=== PATIENT | female | born 1985 | race Caucasian/White ===

== ENCOUNTER 2017-02-27 12:10 | Emergency (ER) | payer BC, MEDICAID ==
[~2017-02-27] VITALS: Ht 167.6 cm; Wt 57.0 kg
[2017-02-27 12:11] VITALS: BP 120/74; PULSE 88; RESP 20; TEMP 97.8; O2SAT 98
--- NOTE | 2017-02-27 12:38 | PD ---
Physical Exam Date Seen by Provider: Feb 27, 2017 Time Seen by Provider: 12:37 Data Data Last Documented VS Vital Signs Date Time Temp Pulse Resp B/P Pulse Ox O2 Delivery O2 Flow Rate FiO2 02/27/17 12:11 97.8 88 20 120/74 98 Room Air [facility] Supervised Visit with ANGELA: No Narrative Course 31 YO F with complaint of chronic UTIs. ABX 3 weeks ago. Recurrence of symptoms x 2 days. Vitals reviewed. Awaiting bed placement. Scripts No Active Prescriptions or Reported Meds Yelena Plunkett Feb 27, 2017 12:38
--- NOTE | 2017-02-27 12:55 | PD ---
HPI Chief Complaint: Complaint Time Seen by Provider: 12:51 Travel History International Travel<30 days: No Contact w/Intl Traveler<30days: No Traveled to known affect area: No History of Present Illness HPI 31-year-old female who has history of recurrent UTI thinks he is having another one today. Usually her primary care would prescribe antibiotic over the phone but the office is closed today. Also she says that because she's been getting once every month for past 6 months a primary care is planning to get a urologic in [employer] workup for the reason for these recurrent UTIs. However she is here to get some antibiotic prescription today. She says today her pain is in the pelvic area and cramping but no bleeding. She was getting some sweating as well. She feels uncomfortable. She's been taking cranberry juice and AZO pill but not helping. Vital signs were otherwise stable. She does have dysuria and frequency. PFSH Past Medical History Narrative Medical List of her past medical, surgical, social and family history is reviewed from the nursing note. Hx Anticoagulant Therapy: No Cardiovascular Problems: No Chemotherapy: No Cerebrovascular Accident: No Diabetes: No Medical other: Yes (uti) Respiratory: No ?: Not LMP: I have an IUD : 4 Para: 2 Miscarriage: 1 Dilation and Curettage (D&C): Yes (1 STILLBORN AT 6 MONTHS) Past Surgical History Section: Yes Other Surgery: Yes Social History Alcohol Use: No Tobacco Use: No Substance Use: No Allergies-Medications (Allergen,Severity, Reaction): Coded Allergies: No Known Allergies (Verified , 02/27/17) Comments List of her allergies reviewed from the nursing note. Reported Meds & Prescriptions Reported Meds & Active Scripts Active Macrobid (Nitrofurantoin Monoh/Nitrofur Macro) 100 Mg Cap 100 Mg PO BID 7 Days Narrative Medication List of her home medications reviewed from the nursing note. Review of Systems Except as stated in HPI: all other systems reviewed are Neg Physical Exam Narrative GENERAL: Awake, alert, anxious SKIN: Focused skin assessment warm/dry. HEAD: Atraumatic. Normocephalic. EYES: Pupils equal and round. No scleral icterus. No injection or drainage. ENT: No nasal bleeding or discharge. Mucous membranes pink and moist. NECK: Trachea midline. No JVD. CARDIOVASCULAR: Regular rate and rhythm. No murmur appreciated. RESPIRATORY: No accessory muscle use. Clear to auscultation. Breath sounds equal bilaterally. GASTROINTESTINAL: Abdomen soft, tenderness over the pelvic area, nondistended. Hepatic and splenic margins not palpable. MUSCULOSKELETAL: No obvious deformities. No clubbing. No cyanosis. No edema. NEUROLOGICAL: Awake and alert. No obvious cranial nerve deficits. Motor grossly within normal limits. Normal speech. PSYCHIATRIC: Appropriate mood and affect; insight and judgment normal. Data Data Last Documented VS Vital Signs Date Time Temp Pulse Resp B/P Pulse Ox O2 Delivery O2 Flow Rate FiO2 02/27/17 12:11 97.8 88 20 120/74 98 Room Air Orders Urinalysis - C+S If Indicated (02/27/17 13:04) Nitrofurantoin Monohyd Macrocr (Macrobid (02/27/17 13:15) Ibuprofen (Motrin) (02/27/17 13:15) Urine Culture (02/27/17 13:13) Labs Laboratory Tests Test 02/27/17 13:13 Urine Color YELLOW Urine Turbidity HAZY Urine pH 5.5 Urine Specific [place] 1.019 Urine Protein NEG mg/dL Urine Glucose (UA) NEG mg/dL Urine Ketones NEG mg/dL Urine Occult Blood TRACE Urine Nitrite NEG Urine Bilirubin NEG Urine Urobilinogen LESS THAN 2.0 MG/DL Urine Leukocyte Esterase LARGE Urine RBC 8 /hpf Urine WBC 46 /hpf Urine Squamous Epithelial 5 /hpf Cells Urine Bacteria OCC /hpf Urine Mucus FEW /lpf Microscopic Urinalysis Comment CULTURE INDICATED MDM Medical Decision Making Medical Screen Exam Complete: Yes Emergency Medical Condition: Yes Medical Record Reviewed: Yes Differential Diagnosis UTI, cystitis Narrative Course 11:15 PM patient says that she will follow up with her primary care on Wednesday and try to get the ultrasound as an outpatient. I have ordered a dose of Macrobid and Motrin here for her. She'll go home on prescription and she is comfortable with that plan. Procedures EKG Prior to Arrival: No Diagnosis Primary Impression: Cystitis Referrals: Primary Care Physician Additional Instructions: Please follow-up with your primary care on Wednesday. Return to the ER if the condition worsens or any other new concerns. Otherwise take the medication as per the prescription direction. Can take [id number] Motrin/Advil/ ibuprofen for pain. Med/Other Pt SpecificInfo: Prescription(s) given Scripts Nitrofurantoin Monohydrate Macrocrystals (Macrobid)100 Mg [id number] Mg PO BID 7 Days Ref 0 Prov:Kassandra Varela MD 02/27/17 Disposition: 01 DISCHARGE HOME Condition: Stable Kassandra Varela MD Feb 27, 2017 12:55
[2017-02-27] MEDS ORDERED: IBUPROFEN 600 MG TAB PO ONE (13:15)
[2017-02-27] MEDS ORDERED: NITROFURANTOIN MONOHYD MACROCR 100 MG CAP PO ONE (13:15)
[2017-02-27] MEDS ORDERED: MACR100C2 PO (13:16)
[2017-02-27 13:40] LABS: BACTERIA, URINE OCC /hpf; BLOOD, URINE TRACE (NEG); COMMENT (UR) CULTURE INDICATED; CULTURE IF INDICATED CULTURE INDICATED; GLUCOSE,URINE NEG (NEG); KETONE, URINE NEG (NEG); MUCUS URINE FEW /lpf (OCC); NITRITE,URINE NEG (NEG); PH, URINE 5.5 (5.0-8.5); SQUAMOUS EPITHELIAL CELL URINE 5 /hpf (0-5); URINE COLOR YELLOW (YELLW/STRAW)
== END 2017-02-27 13:35 | disposition home or self-care (01) ==
LOC: NEPD 12:10
DX: N30.90 Cystitis, unspecified without hematuria (principal); B96.89 Other specified bacterial agents as the cause of diseases classified elsewhere
CPT/HCPCS: 81001; 87086; 99283